=== PATIENT | female | born 1970 | race Caucasian/White ===

== ENCOUNTER 2021-11-28 22:54 | Emergency (ER) | payer BC, SELFPAY ==
[2021-11-28 22:59] VITALS: BP 158/96; PULSE 106; RESP 18; TEMP 36.7; O2SAT 98
--- NOTE | 2021-11-28 23:05 | ED.GENADUL_ITS ---
Discharge Plan Disposition Patient Disposition: HOME Condition: Good Discharge Details Clinical Impression: Dental infection Primary Care Provider: Patrica,Local ED Provider: Juancho Ragsdale and New Rx's Prescriptions: New amoxicillin-pot clavulanate 875-125 mg tablet 1 tab PO BID Qty: 14 0RF Continued atorvastatin 40 mg Tablet 40 mg PO QHS 0RF lisinopril-hydrochlorothiazide 10-12.5 mg Tablet 1 tab PO DAILY 0RF Discharge Instructions Instructions: Dental Abscess (ED) Additional Instructions: Start antibiotic and take as directed. Alternate Tylenol with Motrin for pain. You will need to follow-up with a dentist so be given reaching out to any on the list we have provided. Return to ED for worsening pain/swelling, difficulty breathing, difficulty swallowing. Medical Decision Making Patient with probable dental infection with extension into the soft tissue. No drainable abscess appreciated. No difficulty with breathing or swallowing. Patient will be started on Augmentin. Patient instructed to use acetaminophen and ibuprofen for pain control. She is given a list of area dentists to contact tomorrow for follow-up. Return to ED for increasing pain or swelling, difficulty breathing, difficulty swallowing. HPI General Mode of arrival: ambulatory . Date/Time Provider Initiated Documentation: 11/28/21 23:05 . Limitations to Documentation: no limitations . Information obtained by: patient and RN notes reviewed . HPI Narrative: Patient presents to the ED with right lower jaw swelling and pain. Patient lost a filling few weeks ago. Developed tooth pain over the last 24 to 36 hours. Now has facial pain and swelling mostly along the right mandible. Some swelling extending into the neck and lower lip. Does not appreciate any intraoral swelling, difficulty swallowing, difficulty breathing. Denies fever. Related Data Home Medications Medication Instructions Recorded Confirmed amoxicillin 875 mg-potassium 1 tab PO BID #14 tab 11/28/21 clavulanate 125 mg tablet atorvastatin 40 mg tablet 40 mg PO QHS 11/28/21 11/28/21 lisinopril 10 1 tab PO DAILY 11/28/21 11/28/21 mg-hydrochlorothiazide 12.5 mg tablet Previous Rx's Medication Instructions Recorded amoxicillin 875 mg-potassium 1 tab PO BID #14 tab 11/28/21 clavulanate 125 mg tablet Allergies Allergy/AdvReac Type Severity Reaction Status Date / Time No Known Allergies Allergy Unverified 11/28/21 23:02 General Stated Complaint: Cellulitis ROSIO: 4 Review of Systems Narrative: As documented in HPI otherwise negative as below. Const: no fever, chills, weakness Resp: no cough, SOB, pleuritic pain CV: no CP, diaphoresis, edema, syncope GI: no abdominal pain, nausea, vomiting, diarrhea Neuro: no headache, numbness, focal weakness, confusion PFSH All Active Problems Dental infection (Acute) Medical History HTN (hypertension) Hypercholesterolemia Surgical History S/P exploratory laparotomy S/P mastectomy, bilateral Social History Smoking/Tobacco Use Status: Current every day Tobacco Type: cigarettes Smoking risk assessment performed?: Yes Alcohol Intake: current Substance use type: does not use Do you feel safe at home: Yes Do you feel safe in your relationship?: Yes Exam Narrative Exam Narrative: Const: WDWN female in NAD. HEENT: NC/AT. Firm,tender swelling right anterior mandible. No erythema. No fluctuance. Mild surrounding edema. No intraoral swelling or gingival abscess. Percussion tenderness first molar lower right. Eyes: Normal conjunctiva and sclera. Neck: Supple. Trachea midline. Lungs: Normal respiratory effort. Neuro: A+O x 3. Normal speech, mentation, gait. Cranial nerves II - XII grossly intact. No gross motor or sensory deficit. Ext: No C/C/E. Skin: Warm and dry without rash. Course Vital Signs Vital signs: Vital Signs Temperature 98.1 F 11/28/21 22:59 Pulse 106 H 11/28/21 22:59 Respiratory Rate 18 11/28/21 22:59 Blood Pressure 158/96 H 11/28/21 22:59 Pulse Oximetry 98 11/28/21 22:59 Temperature 98.1 F 11/28/21 22:59 Temperature Source Skin 11/28/21 22:59 Pulse 106 H 11/28/21 22:59 Respiratory Rate 18 11/28/21 22:59 Blood Pressure 158/96 H 11/28/21 22:59 Pulse Oximetry 98 11/28/21 22:59 Pain Level 0 11/28/21 22:59
[2021-11-28] MEDS: Acetaminophen 500 MG TAB 1000 MG PO (23:29)
[2021-11-28] MEDS: Amox. 875/Clav. 125, 2 TABS/BTL 1 TAB PO (23:29)
--- NOTE | 2021-11-29 15:50 | ED.FU.B_ITS ---
Follow Up Plan: I was notified by accredited legal secretary that patient's Augmentin prescription has been electronically sent to [facility] for visit 11/28/2021. [facility] not able to fill this prescription due to no pharmacist/staffing shortages. Patient had requested prescription be called to [facility] in [place] as alternative I called [facility] in [place], prescribed Augmentin 825 mg p.o., 1 tab twice daily, dispense 14, no refill as was prescribed at time of encounter by Dr. Ragsdale.
--- NOTE | 2021-11-29 15:50 | W.ED.FU ---
Follow Up Plan: I was notified by medical secretary receptionist that patient's Augmentin prescription has been electronically sent to [facility] for visit 11/28/2021. [facility] not able to fill this prescription due to no pharmacist/staffing shortages. Patient had requested prescription be called to [facility] in [place] as alternative I called [facility] in [place], prescribed Augmentin 825 mg p.o., 1 tab twice daily, dispense 14, no refill as was prescribed at time of encounter by Dr. Ragsdale.
== END 2021-11-28 23:40 | disposition home or self-care (01) ==
LOC: ER 23:58
PROVIDERS: Emergency Provider Emergency Medicine
DX: K04.7 Periapical abscess without sinus (principal)
CPT/HCPCS: 99283

== ENCOUNTER 2022-02-25 20:54 | Emergency (ER) | payer BC, SELFPAY ==
[2022-02-25] VITALS (29 sets, daily range): BP systolic 125–176; BP diastolic 74–103; PULSE 94–134; RESP 14–32; TEMP 37; O2SAT 90–97
--- NOTE | 2022-02-25 20:45 | RT.EKG_ITS ---
APPROVED REPORT Exam: Resting ECG Reason for Exam: chest pain Patient Location: E HR:124 bpm ECG Measurements Heart Rate 124 AXIS AL 152 P 63 QRSd 97 QRS 8 QT 312 T 56 QTc 448 Conclusion Sinus tachycardia. No st elevation
--- NOTE | 2022-02-25 21:00 | DI.RAD_ITS ---
Exam(s) XR PORTABLE CHEST AP EXAM: XR PORTABLE CHEST AP CLINICAL HISTORY: CP, tachycardia. TECHNIQUE: 2D digital imaging was performed. COMPARISON: No exams were available for comparison FINDINGS: Single AP portable view. Chest leads in place Heart size is upper normal. The mediastinum is not widened. Mild increased markings are noted in both lungs but no confluent infiltrates nor pleural effusions. No Emanuel B lines. No airspace pulmonary edema. There is no pneumothorax. IMPRESSION: As above. Recommend nonportable PA and lateral views when clinically possible or alternatively CT sc an. DATA REPOSITORY: RADIATION DOSE DELIVERED: All CT scans at this facility use at least one of these dose optimization techniques: automated exposure control; mA and/or kV adjustment per patient size (includes targeted e xams where dose is matched to clinical indication); or iterative reconstruction.
--- NOTE | 2022-02-25 21:18 | ED.GENADUL_ITS ---
Discharge Plan Disposition Patient Disposition: HOME Condition: Stable Discharge Details Clinical Impression: Chest pain, Sinus tachycardia, Dehydration Primary Care Provider: Patrica,Local ED Provider: Pau Richardson Home Meds and New Rx's Prescriptions: Continued atorvastatin 40 mg Tablet 40 mg PO QHS lisinopril-hydrochlorothiazide 10-12.5 mg Tablet 1 tab PO DAILY Discharge Instructions Instructions: Chest Pain (ED), Dehydration (ED) Additional Instructions: Your heart rate was initially quite high in the 130s but this came down with fluids. This does have me concerned for dehydration potentially being a cause of your chest discomfort and tachycardia. Your EKG and blood work for your heart are reassuring here today with no acute abnormality. I have placed an order for outpatient Holter monitor, you should receive a call from respiratory therapy department to set this up. I have also asked her care management to help establish local primary care and I would like you to have an appointment in the next 1 to 2 weeks. If in the interim you develop recurrent chest pain, shortness of breath, or other new/worsening symptom please seek care urgently once again. Discharge Orders Other Ambulatory Orders: Holter Monitor (Routine) Timeframe: 1 Week Facility: [facility] - Location: Respiratory Therapy Ordered By: Pau Richardson Discharge Data Discharge Date/Time-TO BE ENTERED AT DEPARTURE: 02/26/22 01:21 Medical Decision Making Patient is a pleasant 51-year-old female brought in via EMS with chief complaint of tachydysrhythmia, palpitations, shortness of breath and chest pain. She reports that this began suddenly when watching a movie with her . States that she immediately developed left-sided chest discomfort that radiated to both arms and the neck. Rated as severe pain and felt very numb and very tight. She has not experienced discomfort like this historically. Denies any recent travel. Was feeling well prior to the episode. Patient does report history of von Willebrand disease. Was advised never to take aspirin or other blood thinner. She was given nitroglycerin by EMS reports that this did not help her symptoms. Patient is an active smoker, 1 pack/day. No significant family history. 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 No change in diet, no elicit drugs, ETOH, caffeine. On exam, patient appears nontoxic. She denies feeling any symptoms at the moment but states that they seem to come and go. Patient is hypertensive. Pulse has been in the 130s. Respiratory rate is normal, she is breathing unlabored. She is afebrile with normal oxygenation. Her lungs are clear in all loera, aside from being tachycardic, cardiac exam is otherwise normal with no murmurs rubs or gallops. She is distal pulses in all extremities. Abdomen benign. EKG reviewed by Dr. Okeefe. Patient sinus tachycardia heart rate in the 130s. No acute ischemic change right-sided strain noted. Will hold off at this time on any anticoagulation given patient's history. Consider ACS, PE is primary concern. EKG was obtained and reviewed by Dr. Okeefe, patient is in a sinus cardia with heart rate of 124. 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 Will obtain baseline labs, troponin, D-dimer. Plan to hydrate the patient, will obtain portable cxr. Patient is receiving IV hydration, heart rate is now down to the 90s. Ree valuated the patient, she remains asymptomatic. Labs reviewed. No ptosis. Stable H&H. D-dimer within normal limits. Potassium slightly low at 3.3, will replenish this here orally. Troponin within normal limits, TSH within normal limits. I do remain concerned for ACS and will obtain repeat troponin. Repeat troponin is WNL. Her HR is downtrending, now at 90. She has not had return of symptoms. We discused her presentation again. She states that she has also had very lmiited fluid intake, has also had large amount of stress. This may have contributed to her sinus tachycardia. Plan to set up patient for holter monitor. She does not have local PCP, I have asked care management to assist with prompt PCP f/u. She was given strict return precautions. Encouraged hydration. All of her quesitons and concerns were addressed, [facility] is in agreeement with this plan. HPI General Date/Time Provider Initiated Documentation: 02/25/22 21:04 . Limitations to Documentation: no limitations . Information obtained by: patient, EMS and RN notes reviewed . History of Present Illness 51 year old F presents to the emergency department with the chief complaint of palpitations and chest pain, with intensity rated at 1 (patient denies any pain). Quality is described as other (:numbness), and is localized to the chest. Patient reports no radiation. Patient started experiencing this hour(s) and it has been now resolved. No relieving factors improve symptom(s), No exacerbating factors reported . Patient notes chest pain; denies cough, diaphoresis, fever/chills, headaches, loss of appetite, nausea/vomiting, rash, shortness of breath, syncope and weakness. Patient did receive the following treatments prior to arrival, none Related Data Home Medications Medication Instructions Recorded Confirmed atorvastatin 40 mg tablet 40 mg PO QHS 11/28/21 11/28/21 lisinopril 10 1 tab PO DAILY 11/28/21 11/28/21 mg-hydrochlorothiazide 12.5 mg tablet Allergies Allergy/AdvReac Type Severity Reaction Status Date / Time No Known Allergies Allergy Unverified 02/25/22 21:03 General Stated Complaint: Chest Pain ROSIO: 2 Review of Systems Constitutional Constitutional: Reports as per HPI, Denies chills, Denies fever(s), Denies headache(s), Denies lethargy and Denies poor appetite Eyes Eyes: Denies change in vision ENT Ears, Nose, Mouth, and Throat: Denies dizziness and Denies headache(s) Cardiovascular Cardiovascular: Reports as per HPI, Denies dyspnea and Denies dyspnea on exertion Respiratory Respiratory: Reports as per HPI, Denies chest congestion, Denies cough, Denies pain on inspiration, Denies pain with cough, Denies dyspnea and Denies dyspnea on exertion Gastrointestinal Gastrointestinal: Reports as per HPI, Denies abdominal pain, Denies diarrhea, Denies nausea and Denies vomiting Musculoskeletal Musculoskeletal: Reports as per HPI and Denies back pain Integumentary/Breasts Skin/Breast: Reports as per HPI and Denies rash Neurologic Neurologic: Reports as per HPI, Denies dizziness and Denies headache(s) PFSH All Active Problems (Updated 02/26/22 @ 01:12 by DARIAN Bocanegra) Chest pain (Acute) Sinus tachycardia (Acute) Dehydration (Acute) Medical History HTN (hypertension) Hypercholesterolemia Surgical History S/P exploratory laparotomy S/P mastectomy, bilateral Social History Smoking/Tobacco Use Status: Current every day Tobacco Type: cigarettes Smoking risk assessment performed?: Yes Alcohol Intake: current Drug use: Never Substance use type: does not use Do you feel safe at home: Yes Do you feel safe in your relationship?: Yes Exam Const General: cooperative, healthy appearing, comfortable, no acute distress, well developed and anxious Nutritional Appearance: average body habitus and well nourished Orientation: alert, awake and oriented x3 HENMT Head: normal to inspection Ears: hearing grossly normal bilaterally Mouth: moist mucous membranes Chest Chest: normal inspection of the chest, normal palpation of entire chest wall and no crepitus Resp Effort & Inspection: normal respiratory effort, able to speak in complete sentences and no respiratory distress Auscultation: clear to auscultation bilaterally, no rales, no rhonchi and no wheezes Cardio Rate: tachycardic Rhythm: regular rhythm Heart Sounds: S1 normal and S2 normal GI Inspection: normal to inspection, no edema and non-distended Palpation: soft, no hepatosplenomegaly, not firm, no guarding, not rigid and nontender Auscultation: normal bowel sounds Back/Spine/Pelvis Back: no CVA tenderness Thoracic/Lumbar Spine: thoracic and lumbar spine normal to inspection Skin General skin exam: no rashes or lesions noted Trauma: no lacerations or abrasions Neuro General: patient alert, patient awake and patient oriented x3 Cognition: normal cognition Speech: speech normal Gait: normal gait Extrem General: normal to inspection, capillary refill normal, no pedal edema, no calf tenderness and normal gait Psych Appearance: grossly normal and well kempt Mental Status: mental status grossly normal Speech and Movement: speech and movement normal Course Vital Signs Vital signs: Vital Signs Temperature 37.0 C 02/25/22 20:55 Pulse 134 H 02/25/22 20:55 Respiratory Rate 18 02/25/22 20:55 Blood Pressure 166/103 H 02/25/22 20:55 Pulse Oximetry 95 02/25/22 20:55 Temperature 37.0 C 02/25/22 20:55 Temperature Source Skin 02/25/22 20:55 Pulse 134 H 02/25/22 20:55 Respiratory Rate 18 02/25/22 21:00 Respiratory Effort 02/25/22 21:00 Respiratory Depth Normal 02/25/22 21:00 Respiratory Pattern Normal 02/25/22 21:00 Blood Pressure 166/103 H 02/25/22 20:55 Blood Pressure Position Supine 02/25/22 20:55 Pulse Oximetry 95 02/25/22 20:55 Oxygen Delivery Method Room Air 02/25/22 20:55 Oxygen Flow Rate 0 02/25/22 20:55 Pain Level 2 02/25/22 20:55
[2022-02-25 21:25] LABS: Abs Immature Grans 0.02 10^3/uL (0.0-0.06); Absolute Basophil Count 0.05 10^3/uL (0.0-0.2); Absolute Eosinophil Count 0.08 10^3/uL (0.0-0.7); Absolute Monocyte Count 0.66 10^3/uL (0.1-0.8); Absolute Neutrophil Count 3.28 10^3/uL (1.2-6.7); Basophils % 0.7; Eosinophils % 1.1; HCT 48.1 % (36.0-46.0); HGB 15.3 g/dL (11.2-15.7); Immature Grans % 0.3; Lymphocytes % 42.3; MCHC 31.8 % (32.0-36.0); MCV 85 fL (80-95); MPV 9.7 fL (8.0-11.0); Monocytes % 9.3; Neutrophils % 46.3; Platelet Count 250 10^3/uL (130-400); RBC 5.66 10^6/uL (3.93-5.22); RDW 13.6 % (11.7-14.6); RDW-SD 42.2 fL; WBC 7.09 10^3/uL (4.4-10.8)
[2022-02-25] MEDS: Normal Saline 1,000 ML 1000 ML IV ×2 (21:33→22:53)
[2022-02-25] MEDS: MAGNESIUM SULFATE 2 GM/50 ML BAG IVPB (21:33)
[2022-02-25 21:37] LABS: PTT Activated 24.1 sec (21.0-27.5); Prothrombin Time 9.7 sec (9.3-11.0)
[2022-02-25 21:40] LABS: ALT 22 U/L (14-59); AST 13 U/L (15-37); Albumin 3.7 g/dL (3.4-5.0); Alkaline Phosphatase 81 U/L (46-116); Anion Gap 9.1 mmol/L (3-11); BUN 18 mg/dL (7-18); Bilirubin, Total 0.2 mg/dL (0.2-1.0); CO2 27.9 mmol/L (21.0-32.0); CREATININE 0.8 mg/dL (0.55-1.02); Calcium 8.8 mg/dL (8.5-10.1); Chloride 104 mmol/L (98-107); Glucose 132 mg/dL (74-106); Potassium 3.3 mmol/L (3.5-5.1); Sodium 141 mmol/L (136-145); Total Protein 7.5 g/dL (6.4-8.2); Troponin I < 50 ng/L (<or=60)
[2022-02-25 22:18] LABS: D-Dimer 462 ng/mlFEU (<500)
--- NOTE | 2022-02-25 22:55 | DI.VRAD_ITS ---
PROCEDURE INFORMATION: Exam: XR Chest Exam date and time: 02/25/2022 9:54 PM Age: 51 years old Clinical indication: Chest wall pain; Additional info: Cp TECHNIQUE: Imaging protocol: XR of the chest. Views: 1 view. COMPARISON: No relevant prior studies available. FINDINGS: Lungs: There is mild atelectasis seen left lower lobe lung. Developing lobar pneumonia cannot be excluded. There are mild diffuse interstitial infiltrates present. This may represent cardiogenic versus noncardiogenic edema. An acute inflammatory process and/or infectious process/pneumonia are not excluded. There is otherwise no evidence of focal lobar pulmonary consolidation. The pulmonary vasculature is normal. Pleural spaces: There is no evidence of pneumothorax. There are no pleural effusions present. Heart/Mediastinum: The cardiac silhouette is within normal limits. The mediastinum is normal. Bones/joints: The spine, sternum, ribs, and pectoral girdles show no evidence of acute abnormality Other findings: There are no soft tissue masses or calcifications. IMPRESSION: 1. There is mild atelectasis seen left lower lobe lung. Pneumonia is not excluded 2. There are mild diffuse interstitial infiltrates present. This may represent cardiogenic versus noncardiogenic edema. An acute inflammatory process and/or infectious process/pneumonia are not excluded. Dictated and Authenticated by: Fabian Briseno MD. Ordering:HUNG Mai MD
[2022-02-26] VITALS: PULSE 96; RESP 14; O2SAT 93
[2022-02-26 00:01] VITALS: BP 126/75; PULSE 92; PULSE 93; RESP 13; O2SAT 93
[2022-02-26 00:10] VITALS: PULSE 91; RESP 14; O2SAT 93
[2022-02-26 00:20] VITALS: PULSE 90; RESP 15; O2SAT 94
[2022-02-26 00:21] VITALS: BP 127/75; PULSE 89; PULSE 90; RESP 20; O2SAT 96
[2022-02-26 00:46] LABS: Troponin I < 50 ng/L (<or=60)
[2022-02-26 01:20] VITALS: BP 148/105; PULSE 100; RESP 18; O2SAT 96
--- NOTE | 2022-02-26 06:07 | NUR.NOTE ---
Referral to Care Management to establish pcp to be seen in 2 weeks for chest pain, tachycardia.Nursing Note:
== END 2022-02-26 01:21 | disposition home or self-care (01) ==
PROVIDERS: Emergency Provider Physician Assistant
DX: R07.9 Chest pain, unspecified (principal); R00.0 Tachycardia, unspecified; E86.0 Dehydration; F17.210 Nicotine dependence, cigarettes, uncomplicated
CPT/HCPCS: 36415; 80053; 93005; 96361; 96365; 96366; 99284; 71045; 83735; 84443; 84484; 85025; 85379; 85610; 85730; 93010